=== PATIENT | male | born 1985 | race Caucasian/White ===

== ENCOUNTER 2018-03-26 16:51 | Emergency (ER) | payer SELFPAY ==
[~2018-03-26] VITALS: Ht 182.9 cm; Wt 104.3 kg
[2018-03-26 17:25] VITALS: BP 150/94
--- NOTE | 2018-03-26 17:27 | NUR ---
PT IS REQUESTING [employer]OT BEFORE LEAVING. WHEN TOLD THAT HE WILL NOT GET IT AND GONNA BE DISCHARGE. PT TOOK REQUESTED PRESCIPTION AND REFUSED TO SIGN ACI. LT IN STABLE CONDITION.
== END 2018-03-26 18:05 | disposition home or self-care (01) ==
LOC: ER 16:54
DX: Z20.2 Contact with and (suspected) exposure to infections with a predominantly sexual mode of transmission (principal)
CPT/HCPCS: 99281; A4606; Z7610; Z7502